=== PATIENT | female | born 1985 | race American Indian/Alaskan Native ===

== ENCOUNTER 2018-05-17 15:13 | Emergency (ER) | payer OTHER ==
[2018-05-17 15:55] VITALS: TEMP 98.4
--- NOTE | 2018-05-17 16:38 | ED PDOC ---
Arrival/HPI - General Chief Complaint: Upper Extremity Problem/Injury Time Seen by Provider: 05/17/18 16:27 Historian: Patient - History of Present Illness Narrative History of Present Illness (Text): 05/17/18 16:32 32 y/o F, with no significant past medical history, presents to the Emergency department complaining of right shoulder pain beginning today. She states she was helping her lift heavy boxes when she felt a sudden pain to the right shoulder worsening throughout the course of the day. Patient informs exacerbation of pain with active adduction of the right shoulder but denies any numbness/tingling or loss of motor strength to the extremity. She denies taking any pain medication for the pain. She denies any fall, neck pain or back pain. Patient denies any other associated somatic complaints including fever, chills, nausea, vomiting, diarrhea, abdominal pain, chest pain, shortness of breath, headache, dizziness or any other complaints. Time/Duration: 4-6 hours Symptom Onset: Gradual Symptom Course: Unchanged Quality: Aching Activities at Onset: Other (Lifting) Context: Home Past Medical History - Provider Review Nursing Documentation Reviewed: Yes - Travel History Have you recently traveled outside [place] w/in the past 3 mons?: No - Cardiac Hx Cardiac Disorders: No - Pulmonary Hx Respiratory Disorders: No - Neurological Hx Neurological Disorder: No - HEENT Hx HEENT Disorder: Yes Other/Comment: ORAL HERPES - Renal Hx Renal Disorder: No - Endocrine/Metabolic Hx Endocrine Disorders: No - Hematological/Oncological Hx Blood Disorders: No - Integumentary Hx Dermatological Disorder: No - Musculoskeletal/Rheumatological Hx Musculoskeletal Disorders: No - Gastrointestinal Hx Gastrointestinal Disorders: Yes Hx Hemorrhoids: Yes - Genitourinary/Gynecological Hx Genitourinary Disorders: Yes Hx Sexually Transmitted Diseases: Yes (HERPES) - Psychiatric Hx Psychophysiologic Disorder: Yes Hx Anxiety: Yes Hx Substance Use: No - Surgical History Other/Comment: HEMMORHOIDECTOMY Family/Social History - Physician Review Nursing Documentation Reviewed: Yes Family/Social History: No Known Family HX Smoking Status: Never Smoked Hx Alcohol Use: Yes Frequency of alcohol use: Socially Hx Substance Use: No Allergies/Home Meds Allergies/Adverse Reactions: Allergies Penicillins Allergy (Verified 05/18/18 09:03) RASH Home Medications: Home Meds Medication Instructions Recorded Confirmed No Known Home Med 05/17/18 05/17/18 Review of Systems - Physician Review All systems were reviewed & negative as marked: Yes - Review of Systems Constitutional: absent: Fevers Respiratory: absent: SOB Cardiovascular: absent: Chest Pain Gastrointestinal: absent: Abdominal Pain, Diarrhea, Nausea, Vomiting Musculoskeletal: Myalgias (right shoulder pain). absent: Back Pain, Neck Pain Neurological: absent: Headache, Dizziness Physical Exam Vital Signs Reviewed: Yes Vital Signs Temp Pulse Resp BP Pulse Ox 05/17/18 15:50 98.4 F 77 16 103/65 99 Temperature: Afebrile Blood Pressure: Normal Pulse: Regular Respiratory Rate: Normal Appearance: Positive for: Well-Appearing, Non-Toxic, Comfortable Pain Distress: None Mental Status: Positive for: Alert and Oriented X 3 - Systems Exam Head: Present: Atraumatic, Normocephalic Pupils: Present: PERRL Extroacular Muscles: Present: EOMI Conjunctiva: Present: Normal Mouth: Present: Moist Mucous Membranes Neck: Present: Normal Range of Motion Respiratory/Chest: Present: Clear to Auscultation, Good Air Exchange. No: Respiratory Distress, Accessory Muscle Use Cardiovascular: Present: Regular Rate and Rhythm, Normal S1, S2. No: Murmurs Abdomen: No: Tenderness, Distention, Peritoneal Signs Back: Present: Normal Inspection Upper Extremity: Present: NORMAL PULSES, Tenderness (Tenderness to palpation to right trapezius muscle. Pain with active motion against gravity.), Neurovascularly Intact, Capillary Refill < 2s, Other (Radial pulses intact). No: Cyanosis, Edema, Deformity (no gross deformity noted to right shoulder joint) Lower Extremity: Present: Normal Inspection. No: Edema Neurological: Present: GCS=15, CN II-XII Intact, Speech Normal Skin: Present: Warm, Dry, Normal Color. No: Rashes Psychiatric: Present: Alert, Oriented x 3, Normal Insight, Normal Concentration Medical Decision Making ED Course and Treatment: 05/17/18 16:35 Impression: 32 year old female presents to the Emergency department complaining of right shoulder pain. Differential Diagnosis included but are not limited to: Right shoulder fracture Right shoulder dislocation Right shoulder contusion Plan: -- Valium -- Motrin -- X-ray of Right Shoulder -- Reassess and disposition Prior Visits: Notes and results from previous visits were reviewed. No history of prior visits for similar complaint. Progress Notes: 05/17/18 17:27 XR negative for acute fracture or dislocation. Patient informed of image findings and will follow up with orthopedic surgery. She is encouraged to continue supportive management. Follow up provided. She is stable for discharge. - RAD Interpretation Radiology Orders: 05/17/18 16:27 SHOULDER RIGHT [RAD] Stat - Medication Orders Current Medication Orders: Diazepam (Valium) 5 mg PO ONCE ONE; Protocol Stop: 05/17/18 16:31 Ibuprofen (Motrin Tab) 600 mg PO STAT STA Stop: 05/17/18 16:31 - Scribe Statement The provider has reviewed the documentation as recorded by the Scribe Yang Nguyen. Provider Scribe Attestation: All medical record entries made by the Scribe were at my direction and personally dictated by me. I have reviewed the chart and agree that the record accurately reflects my personal performance of the history, physical exam, medical decision making, and the department course for this patient. I have also personally directed, reviewed, and agree with the discharge instructions and disposition. Disposition/Present on Arrival - Present on Arrival Any Indicators Present on Arrival: No History of DVT/PE: No History of Uncontrolled Diabetes: No Urinary Catheter: No History of Decub. Ulcer: No History Surgical Site Infection Following: None - Disposition Have Diagnosis and Disposition been Completed?: Yes Diagnosis: Shoulder sprain Disposition: HOME/ ROUTINE Disposition Time: 17:29 Patient Plan: Discharge Condition: STABLE Discharge Instructions (ExitCare): Shoulder Sprain (DC), Shoulder Instability (DC) Referrals: Greta Almanza MD [Staff Provider] - Follow up with primary Tete Abdi MD [Medical Doctor] - Follow up with primary [facility] [place] - Follow up with primary Forms: [employer] (German)
[2018-05-17 17:35] VITALS: BP 122/80; PULSE 68; RESP 18; O2SAT 98
--- NOTE | 2018-05-18 10:18 | RAD ---
Date of service: 05/17/2018 PROCEDURE: Radiographs of the Right Shoulder HISTORY: pain s/p lifting heavy object COMPARISON: No prior. FINDINGS: BONES: Normal. No fracture. JOINTS: Normal. Glenohumeral and acromioclavicular joints preserved. No osteoarthritis. SOFT TISSUES: Normal. OTHER FINDINGS: None. IMPRESSION: Normal radiographs of the right shoulder.
== END 2018-05-17 17:35 | disposition home or self-care (01) ==
LOC: ED 15:13
DX: S43.401A Unspecified sprain of right shoulder joint, initial encounter (principal); X50.0XXA Overexertion from strenuous movement or load, initial encounter